=== PATIENT | male | born 1975 | race American Indian/Alaskan Native ===

== ENCOUNTER 2016-09-15 16:03 | Emergency (ER) | payer MEDICAID, OTHER ==
[2016-09-15] MEDS: ROBITUSSIN PO ONE (20:29)
[2016-09-15] MEDS: DELTASONE PO ONE (20:29)
[2016-09-15 20:55] VITALS: BP 122/86
--- NOTE | 2016-09-15 21:05 | Emergency Department Report ---
Entered by ROSI CHANDRA, acting as scribe for JUAN CALLE PA. - General Chief Complaint: Upper Respiratory Infection Stated Complaint: CHEST PAIN/UPPER BACK PAIN/HEADACHE Source: patient Mode of arrival: Ambulatory Limitations: No Limitations - History of Present Illness Initial Comments: 41 y/o male with a PMHx of asthma presents to the ED c/o an upper respiratory infection that began 3 days ago. Associated symptoms include headache, nasal congestion, thick nasal drainage, facial pressure, and nonproductive cough, but he denies blurry vision, abdominal pain, nausea, vomiting, ear pain, and sore throat. Rates headache a 10/10 in severity. Patient states light worsens his headache. Notes he was diagnosed with sinusitis in the past, and states the symptoms feel similar to that episode. Patient also c/o chest pain and upper back pain that began 2 weeks ago. Rates chest pain a 7/10 and back pain a 9/10 in severity. Patient states back pain is worse with cough. Notes he took allergy medication prescribed by an ED physician 3 days ago with no relief. Took Tylenol [employer]ORDINATOR with no relief. Denies tobacco use. Allergic to aspirin. MD Complaint: nasal congestion, sinus pain, other (headache) Onset/Timin -: days(s) Severity: moderate Quality: other (pressure) Consistency: constant Improves With: nothing (took prescribed allergy medication and Tylenol with no relief) Worsens With: nothing Associated Symptoms: denies other symptoms, headache, rhinorrhea, nasal congestion, cough (nonproductive), chest pain, other (upper back pain). denies : fever, chills, diaphoresis, sore throat, stiff neck, shortness of breath, abdominal pain, nausea, vomiting, diarrhea, rash, ear pain Treatments Prior to Arrival: Acetaminophen - Related Data Previous Rx's Medication Instructions Recorded Last Taken Type ALBUTEROL Inhaler [ProAir HFA 8.5 gm IH BID PRN #1 inha 07/12/14 Unknown Rx Inhaler] Amoxicillin [Amoxicillin TAB] 875 mg PO BID #12 tablet 09/15/16 Unknown Rx Benzonatate [Tessalon Perles] 100 mg PO Q8HR #20 capsule 09/15/16 Unknown Rx Pseudoephedrine/Acetaminophen 1 each PO BID #30 tablet 09/15/16 Unknown Rx [Nexafed Sinus Press-Pain Tab] Allergies Allergy/AdvReac Type Severity Reaction Status Date / Time aspirin Allergy Unknown Verified 09/15/16 16:29 ED Review of Systems Comment: All other systems reviewed and negative Constitutional: no symptoms reported. denies: chills, diaphoresis, fever, weakness Eyes: as per HPI ENT: as per HPI, congestion, other (thick nasal drainage). denies: ear pain, throat pain Respiratory: cough (nonproductive). denies: shortness of breath Cardiovascular: as per HPI, chest pain Endocrine: no symptoms reported Gastrointestinal: as per HPI. denies: abdominal pain, nausea, vomiting, diarrhea Genitourinary: as per HPI Musculoskeletal: as per HPI, back pain (upper), other (facial pressure) Skin: as per HPI. denies: rash Neurological: as per HPI, headache ED Past Medical Hx - Past Medical History Hx Asthma: Yes - Surgical History Past Surgical History?: No - Social History Smoking Status: Never Smoker Substance Use Type: None - Medications Home Medications: Home Medications Medication Instructions Recorded Confirmed Last Taken Type ALBUTEROL Inhaler [ProAir HFA 8.5 gm IH BID PRN #1 inha 07/12/14 Unknown Rx Inhaler] Amoxicillin [Amoxicillin TAB] 875 mg PO BID #12 tablet 09/15/16 Unknown Rx Benzonatate [Tessalon Perles] 100 mg PO Q8HR #20 capsule 09/15/16 Unknown Rx Pseudoephedrine/Acetaminophen 1 each PO BID #30 tablet 09/15/16 Unknown Rx [Nexafed Sinus Press-Pain Tab] ED Physical Exam - General Limitations: No Limitations General appearance: alert, in no apparent distress - Head Head exam: Present: atraumatic, normocephalic, other (sinus facial pain) - Eye Eye exam: Present: normal appearance, EOMI - ENT ENT exam: Present: normal exam, mucous membranes moist - Neck Neck exam: Present: normal inspection, full ROM. Absent: tenderness, lymphadenopathy - Respiratory Respiratory exam: Present: normal lung sounds bilaterally. Absent: respiratory distress, wheezes, rales, rhonchi - Cardiovascular Cardiovascular Exam: Present: regular rate, normal rhythm. Absent: systolic murmur, diastolic murmur, rubs, gallop - GI/Abdominal GI/Abdominal exam: Present: soft, normal bowel sounds - Extremities Exam Extremities exam: Present: normal inspection, full ROM - Back Exam Back exam: Present: normal inspection, full ROM - Neurological Exam Neurological exam: Present: alert, oriented X3 - Psychiatric Psychiatric exam: Present: normal affect, normal mood - Skin Skin exam: Present: warm, dry, intact. Absent: rash ED Course Vital Signs 09/15/16 16:31 Temperature 98.3 F Pulse Rate 101 H Respiratory 16 Rate Blood Pressure 126/87 O2 Sat by Pulse 98 Oximetry ED Medical Decision Making - EKG Data EKG shows normal: sinus rhythm Rate: tachycardia - EKG Data Left atrial enlargement 09/15/16 21:00 09/15/16 21:00 - Medical Decision Making 41 y.o male presents with frontal sinusitis ED course: Patient received Robitussin, pseudoephedrine in ER. Patient was evaluated in fast track area of ED by this provider. EKG was done prior to my evaluating this patient. EKG-sinus tachycardia, possible left atrial enlargement Discussed findings with patient. Discussed patient in follow-up with Clinical Nurse Occupational Medicine for repeat and EKG. Discussed the patient take his inhaler as needed Patient denies chest pain at the moment. Patient presented with an upper respiratory infection for 3 days. Patient is in no acute distress at this time. He will be discharged home. Patient instructed to follow up with PCP if symptoms persist. Patient verbalized understanding. He is encouraged to return to the emergency room for any worsening symptoms. ED Disposition Clinical Impression: Sinusitis chronic, frontal URI (upper respiratory infection) Qualifiers: URI type: unspecified URI Qualified Code(s): J06.9 - Acute upper respiratory infection, unspecified Disposition: DISCHARGED TO HOME OR SELFCARE Is pt being admited?: No Does the pt Need Aspirin: No Condition: Stable Instructions: Sinusitis (ED), Upper Respiratory Infection (ED) Prescriptions: Amoxicillin [Amoxicillin TAB] 875 mg PO BID #12 tablet Benzonatate [Tessalon Perles] 100 mg PO Q8HR #20 capsule Pseudoephedrine/Acetaminophen [Nexafed Sinus Press-Pain Tab] 1 each PO BID #30 tablet Referrals: PRIMARY CARE, [Primary Care Provider] - 3-5 Days [facility] [Outside] - 3-5 Days [facility] [Outside] - 3-5 Days [facility] [Outside] - 3-5 Days Forms: Work/School Release Form(ED) Time of Disposition: :22 This documentation as recorded by the PRATEEK eugene JASMINE,accurately reflects the service I personally performed and the decisions made by LUC talavera OYINLOLA A, PA.
[2016-09-15] MEDS: SUDAFED 12 HR PO PRN (21:06)
== END 2016-09-15 21:07 | disposition home or self-care (01) ==
LOC: ED 16:03
DX: J32.1 Chronic frontal sinusitis (principal); J06.9 Acute upper respiratory infection, unspecified; J45.909 Unspecified asthma, uncomplicated; Z88.6 Allergy status to analgesic agent
CPT/HCPCS: 93005; 93010; 99282; J7512